=== PATIENT | female | born 1990 | race Caucasian/White ===

== ENCOUNTER 2019-09-03 05:31 | Outpatient (CLI) | payer MEDICAID ==
[~2019-09-03] VITALS: Ht 170 cm; Wt 60.9 kg
[~2019-09-03 05:31] MED LIST: AMOX-358 PO; Docusate Sodium PO; FLC100T1 PO; HYDR-3720 PO; Ibuprofen PO; NEOM10DR6 EACH EAR; NF-CIPDEC OT; NITR100C3 PO; SULF1TAB23 PO
[2019-09-03] MEDS ORDERED: RT-ALBUINH IH (13:05)
[2019-09-07] MEDS ORDERED: IBUP-1780 PO (12:51)
== END 2019-09-03 13:14 | disposition home or self-care (01) ==
LOC: PREOP 05:31
PROVIDERS: ATTEND Obstetrics & Gynecology
DX: Z01.818 Encounter for other preprocedural examination (principal)

== ENCOUNTER 2020-02-04 15:08 | Emergency (ER) | payer MEDICAID ==
[~2020-02-04] VITALS: Ht 170 cm; Wt 59.0 kg
[~2020-02-04 15:08] MED LIST changes: +IBUP-1780 PO; +RT-ALBUINH IH
--- NOTE | 2020-02-04 15:38 | ED EENT ---
History of Present Illness General Chief Complaint: Pediatric Illness/Problems Stated Complaint: EAR PAIN Source: patient Exam Limitations: no limitations History of Present Illness Date Seen by Provider: February 04, 2020 Time Seen by Provider: 15:33 Initial Comments Bilateral ear itching and pain, history of eczema in her ear canals she states. Timing/Duration: abrupt Severity: moderate Location: ear (R), ear (L) Associated Symptoms: denies symptoms Allergies and Home Medications Allergies Coded Allergies: latex (Verified Allergy, Mild, RASH, 09/03/19) Home Medications Albuterol Sulfate 1 Puff Puff, 2 PUFF IH Q4H PRN for SHORTNESS OF BREATH, (Rep orted) 1 PUFF = 90 MCG Ibuprofen 800 Mg Tablet, 800 MG PO Q6H PRN for PAIN Prescribed by: MARIA M QUINTERO on 09/07/19 1251 Patient Home Medication List Home Medication List Reviewed: Yes Review of Systems Review of Systems Constitutional: see HPI Eyes: No Symptoms Reported Ears: See HPI, Pain Nose: no symptoms reported Mouth: no symptoms reported Throat: no symptoms reported Respiratory: no symptoms reported Cardiovascular: no symptoms reported Musculoskeletal: no symptoms reported Skin: no symptoms reported Neurological: No Symptoms Reported Hematologic/Lymphatic: No Symptoms Reported Immunological/Allergic: no symptoms reported Past Ejnxavg-Vdkhke-Jqqyev Hx Patient Social History Former Smoker, Quit: Sep 03, 2015 2nd Hand Smoke Exposure: Yes Recent Foreign Travel: No Contact w/Someone Who Travel: No Recent Hopitalizations: No Seasonal Allergies Seasonal Allergies: Yes Past Medical History Surgeries: Yes (BILIAT KNEE SCOPES) Adenoidectomy, Tonsillectomy Respiratory: Yes Asthma Cardiac: No Neurological: No Reproductive Disorders: No Female Reproductive Disorders: Menstrual Problems Sexually Transmitted Disease: No HIV/AIDS: No Genitourinary: Yes UTI-Chronic Gastrointestinal: No Musculoskeletal: No Endocrine: No HEENT: Yes (GLASSES-WHEN AT WORK) Loss of Vision: Denies Hearing Impairment: Denies Cancer: No Psychosocial: No Integumentary: Yes (IN EARS) Eczema Blood Disorders: No Adverse Reaction/Blood Tranf: No (N/A) Family Medical History Hypertension 19 FATHER Physical Exam Height, Weight, BMI Height: 5'6" Weight: 100lbs. oz. 45.811012up; 21.07 BMI Method:Stated General Appearance: WD/WN, no apparent distress Eyes: bilateral eye normal inspection, bilateral eye PERRL, bilateral eye EOMI Ears: bilateral ear auricle normal, bilateral ear TM normal, bilateral ear other (bilat ear canal swollen, tender. ) Neck: non-tender, full range of motion Respiratory: no respiratory distress, no accessory muscle use Neurologic/Psychiatric: alert, normal mood/affect, oriented x 3 Skin: normal color, warm/dry Departure Impression Primary Impression: Otitis externa Qualified Codes: H60.503 - Unspecified acute noninfective otitis externa, bilateral Disposition: 01 HOME, SELF-CARE Condition: Stable Departure-Patient Inst. Decision time for Depature: 15:35 Referrals: NO,LOCAL PHYSICIAN (PCP) Primary Care Physician Patient Instructions: Ear Infections (Otitis Media) in Children, NO INSTRUCTIONS GIVEN Add. Discharge Instructions: 4 drops into each ear 3 times per day for 5 days All discharge instructions reviewed with patient and/or family. Voiced understanding. TEE BELL MEDIA RECONCILIATION SPECIALIST February 04, 2020 15:38
[2020-02-04] MEDS ORDERED: HYDR-3870 PO ×2 (15:40→15:46)
== END 2020-02-04 15:44 | disposition home or self-care (01) ==
LOC: EDUNIT# 15:08 → ER 15:09
DX: H60.93 Unspecified otitis externa, bilateral (principal); J45.909 Unspecified asthma, uncomplicated; Z91.040 Latex allergy status; Z87.891 Personal history of nicotine dependence; Z82.49 Family history of ischemic heart disease and other diseases of the circulatory system
CPT/HCPCS: 99282

== ENCOUNTER 2020-11-29 20:26 | Emergency (ER) | payer MEDICAID ==
[~2020-11-29] VITALS: Ht 170.2 cm; Wt 56.7 kg
[~2020-11-29 20:26] MED LIST changes: +HYDR-3870 PO
--- NOTE | 2020-11-29 20:50 | ED Respiratory ---
General Stated Complaint: CONGESTION / COUGH Source: patient Exam Limitations: no limitations History of Present Illness Date Seen by Provider: Nov 29, 2020 Time Seen by Provider: 20:39 Initial Comments This is a 30-year-old female who presents to the ER with complaints of cough and congestion x6 days. States that she is having "limegreen" nasal discharge, congestion, cough that does not go away. States she was tested for Covid on Tuesday (4 days ago) and was negative at that time. Additionally reports some intermittent feelings of shortness of air. She denies fever, chills, nausea, vomiting, diarrhea, abdominal pain. Allergies and Home Medications Allergies Coded Allergies: latex (Verified Allergy, Mild, RASH, 09/03/19) Home Medications Albuterol Sulfate 1 Puff Puff, 2 PUFF IH Q4H PRN for SHORTNESS OF BREATH, (Reported) 1 PUFF = 90 MCG Benzonatate 100 Mg Capsule, 200 MG PO BID PRN for COUGH Prescribed by: YANN THORNTON on 11/29/20 2220 Hydrocodone/Acetaminophen 1 Each Tablet, 1 EACH PO Q4-6HR PRN for PAIN-MODERATE . Prescribed by: TEE BELL on 02/04/20 1547 Ibuprofen 800 Mg Tablet, 800 MG PO Q6H PRN for PAIN Prescribed by: MARIA M QUINTERO on 09/07/19 1251 Patient Home Medication List Home Medication List Reviewed: Yes Review of Systems Review of Systems Constitutional: see HPI EENTM: see HPI Respiratory: see HPI Cardiovascular: no symptoms reported Gastrointestinal: no symptoms reported Genitourinary: no symptoms reported Musculoskeletal: no symptoms reported Skin: no symptoms reported Psychiatric/Neurological: No Symptoms Reported Hematologic/Lymphatic: No Symptoms Reported Immunological/Allergic: no symptoms reported Past Buutray-Wgwqmw-Fcalrj Hx Patient Social History Former Smoker, Quit: Sep 03, 2015 2nd Hand Smoke Exposure: Yes Recent Hopitalizations: No Seasonal Allergies Seasonal Allergies: Yes Past Medical History Surgeries: Yes (BILIAT KNEE SCOPES) Adenoidectomy, Tonsillectomy Respiratory: Yes Asthma Cardiac: No Neurological: No Reproductive Disorders: No Female Reproductive Disorders: Menstrual Problems Sexually Transmitted Disease: No HIV/AIDS: No Genitourinary: Yes UTI-Chronic Gastrointestinal: No Musculoskeletal: No Endocrine: No HEENT: Yes (GLASSES-WHEN AT WORK) Loss of Vision: Denies Hearing Impairment: Denies Cancer: No Psychosocial: No Integumentary: Yes (IN EARS) Eczema Blood Disorders: No Adverse Reaction/Blood Tranf: No (N/A) Family Medical History Hypertension 19 FATHER Physical Exam Vital Signs - First Documented 11/29/20 11/29/20 20:50 21:04 Temp 36.3 Pulse 81 Resp 18 B/P (MAP) 113/83 (93) Pulse Ox 97 O2 Delivery Room Air Capillary Refill : Height: 5'6" Weight: 100lbs. oz. 45.572217gl; 20.00 BMI Method:Stated General Appearance: WD/WN, no apparent distress Eyes: Right Eye Normal Inspection; Left Eye Other (Injected); Bilateral Eye PERRL, Bilateral Eye EOMI HEENT: PERRL/EOMI; No TM abnormal (L), No tonsillar exudate; other (Bilateral swollen turbinates with moderate nasal drainage.) Neck: full range of motion, supple, normal inspection Respiratory: lungs clear, normal breath sounds, no respiratory distress Cardiovascular: regular rate, rhythm, no murmur Gastrointestinal: normal bowel sounds, non tender, soft Extremities: normal range of motion, non-tender, normal inspection Neurologic/Psychiatric: no motor/sensory deficits, alert, normal mood/affect, oriented x 3 Skin: normal color, warm/dry Progress/Results/Core Measures Suspected Sepsis SIRS Temperature: Pulse: Respiratory Rate: Laboratory Tests 11/29/20 21:20: White Blood Count 10.3 Blood Pressure / Mean: Laboratory Tests 11/29/20 21:20: Creatinine 0.74, Platelet Count 263, Total Bilirubin 0.3 Results/Orders Lab Results Laboratory Tests Test 11/29/20 21:20 Range/Units White Blood Count 10.3 4.3-11.0 10^3/uL Red Blood Count 4.31 3.80-5.11 10^6/uL Hemoglobin 13.2 11.5-16.0 g/dL Hematocrit 39 35-52 % Mean Corpuscular Volume 90 80-99 fL Mean Corpuscular Hemoglobin 31 25-34 pg Mean Corpuscular Hemoglobin Concent 34 32-36 g/dL Red Cell Distribution Width 11.9 10.0-14.5 % Platelet Count 263 130-400 10^3/uL Mean Platelet Volume 10.2 9.0-12.2 fL Immature Granulocyte % (Auto) 0 % Neutrophils (%) (Auto) 46 42-75 % Lymphocytes (%) (Auto) 37 12-44 % Monocytes (%) (Auto) 13 H 0-12 % Eosinophils (%) (Auto) 3 0-10 % Basophils (%) (Auto) 1 0-10 % Neutrophils # (Auto) 4.7 1.8-7.8 10^3/uL Lymphocytes # (Auto) 3.8 1.0-4.0 10^3/uL Monocytes # (Auto) 1.4 H 0.0-1.0 10^3/uL Eosinophils # (Auto) 0.3 0.0-0.3 10^3/uL Basophils # (Auto) 0.1 0.0-0.1 10^3/uL Immature Granulocyte # (Auto) 0.0 0.0-0.1 10^3/uL Sodium Level 138 135-145 MMOL/L Potassium Level 3.8 3.6-5.0 MMOL/L Chloride Level 105 98-107 MMOL/L Carbon Dioxide Level 24 21-32 MMOL/L Anion Gap 9 5-14 MMOL/L Blood Urea Nitrogen 8 7-18 MG/DL Creatinine 0.74 0.60-1.30 MG/DL Estimat Glomerular Filtration Rate > 60 BUN/Creatinine Ratio 11 Glucose Level 95 70-105 MG/DL Calcium Level 8.3 L 8.5-10.1 MG/DL Corrected Calcium 8.3 L 8.5-10.1 MG/DL Total Bilirubin 0.3 0.1-1.0 MG/DL Aspartate Amino Transf (AST/SGOT) 13 5-34 U/L Alanine Aminotransferase (ALT/SGPT) 12 0-55 U/L Alkaline Phosphatase 44 40-136 U/L Total Protein 6.5 6.4-8.2 GM/DL Albumin 4.0 3.2-4.5 GM/DL Micro Results Microbiology 11/29/20 Influenza Types A,B Antigen (ЮЛИЯ) - Final, Complete My Orders Orders - YANN THORNTON SENIOR FRONT END ENGINEER Influenza A And B Antigens (11/29/20 20:54) Cbc With Automated Diff (11/29/20 20:54) Chest 1 View, Ap/Pa Only (11/29/20 20:54) Comprehensive Metabolic Panel (11/29/20 20:54) Benzonatate Capsule (Tessalon Perles) (11/29/20 22:30) Medications Given in ED Current Medications Medications Dose Ordered Sig/Jen Route Start Time Stop Time Status Last Admin Dose Admin Benzonatate 200 mg ONCE ONCE PO 11/29/20 22:30 11/29/20 22:31 DC 11/29/20 22:26 200 MG Vital Signs/I&O 11/29/20 11/29/20 20:50 21:04 Temp 36.3 Pulse 81 Resp 18 B/P (MAP) 113/83 (93) Pulse Ox 97 O2 Delivery Room Air Room Air Capillary Refill : Progress Note : Progress Note Patient examined in no acute distress. Based on symptomology this appears viral in nature however she is very concerned about bacterial infection including pneumonia. Will initiate basic labs, chest x-ray, influenza as she had a recent Covid that was negative. Labs reviewed and indicate viral URI. Influenza neg. Chest x-ray shows no acute pathology. Reviewed findings with patient and discharge plan and she is agreeable with plan. Will give dose of Tessalon Perles in ED prior to disch arge. Diagnostic Imaging Diagonstic Imaging: Xray Plain Films/CT/US/NM/MRI: chest Comments NAME: REKHA HAYES [facility] REC#: [id number] PT STATUS: REG ER : 1990 PHYSICIAN: YANN THORNTON APRN ADMIT DATE: 11/29/20/ER Signed Date of Exam:11/29/20 CHEST 1 VIEW, AP/PA ONLY INDICATION: Cough. EXAMINATION: Portable erect AP chest at 9:29 p.m. COMPARISON: There are no prior exams available for comparison. FINDINGS: The heart size is within normal limits. The lungs are generally clear. There are a few coarse bronchovascular markings in the right infrahilar region but there is no sign of pneumonia or pleural effusion. The osseous structures, where visualized, are intact. IMPRESSION: Negative for active disease. Dictated by: Dictated on workstation # [id number] Dict: 11/29/202133 Trans: 11/29/202216 E [id number] Interpreted by: ALMA DELIA BROWN MD Electronically signed by: ALMA DELIA BROWN MD 11/29/202216 Reviewed: Reviewed by Me Departure Impression Primary Impression: Upper respiratory infection, viral Disposition: HOME, SELF-CARE Condition: Stable/Unchanged Departure-Patient Inst. Decision time for Depature: 22:15 Referrals: NO,LOCAL PHYSICIAN (PCP/Family) Primary Care Physician Patient Instructions: Viral Upper Respiratory Infection, Adult (DC) Add. Discharge Instructions: Plan: 1. Discharge home. 2. Use humidifier to help with mucus secretions. Drink plenty of fluids. 3. May take Tylenol or Ibuprofen as needed for pain per package insert. 4. Use Tessalon perle as directed for cough. 5. Follow up with your doctor for any persistent symptoms. 6. Return for any new or worsening symptoms. Scripts Benzonatate (TESSALON PERLES) 100 Mg Capsule 200 MG PO BID PRN for COUGH, #20 CAP 0 Refills Prov: YANN THORNTON SENIOR FRONT END ENGINEER 11/29/20 YANN THORNTON SENIOR FRONT END ENGINEER Nov 29, 2020 20:50
[2020-11-29 21:38] LABS: BASOPHILS # (AUTO) 0.1 10^3/uL (0.0-0.1); BASOPHILS % (AUTO) 1 % (0-10); EOSINOPHILS # (AUTO) 0.3 10^3/uL (0.0-0.3); EOSINOPHILS % (AUTO) 3 % (0-10); HEMATOCRIT 39 % (35-52); HEMOGLOBIN 13.2 g/dL (11.5-16.0); LYMPHOCYTES # (AUTO) 3.8 10^3/uL (1.0-4.0); LYMPHOCYTES % (AUTO) 37 % (12-44); MEAN CORPUSCULAR HEMOGLOBIN 31 pg (25-34); MEAN CORPUSCULAR HGB CONC 34 g/dL (32-36); MEAN CORPUSCULAR VOLUME 90 fL (80-99); MEAN PLATELET VOLUME 10.2 fL (9.0-12.2); MONOCYTES # (AUTO) 1.4 10^3/uL (0.0-1.0); MONOCYTES % (AUTO) 13 % (0-12); NEUTROPHILS # (AUTO) 4.7 10^3/uL (1.8-7.8); NEUTROPHILS % (AUTO) 46 % (42-75); PLATELET COUNT 263 10^3/uL (130-400); WHITE BLOOD COUNT 10.3 10^3/uL (4.3-11.0)
--- NOTE | 2020-11-29 21:57 | Diagnostic Imaging Report ---
INDICATION: Cough. EXAMINATION: Portable erect AP chest at 9:29 p.m. COMPARISON: There are no prior exams available for comparison. FINDINGS: The heart size is within normal limits. The lungs are generally clear. There are a few coarse bronchovascular markings in the right infrahilar region but there is no sign of pneumonia or pleural effusion. The osseous structures, where visualized, are intact. IMPRESSION: Negative for active disease. Dictated by: Dictated on workstation # [id number]
[2020-11-29 22:01] LABS: ALANINE AMINOTRANSFERASE 12 U/L (0-55); ALKALINE PHOSPHATASE 44 U/L (40-136); BILIRUBIN,TOTAL 0.3 MG/DL (0.1-1.0); BUN/CREATININE RATIO 11; CALCIUM 8.3 MG/DL (8.5-10.1); CARBON DIOXIDE 24 MMOL/L (21-32); CHLORIDE 105 MMOL/L (98-107); CREATININE SERUM 0.74 MG/DL (0.60-1.30); GFR ESTIMATED > 60; GLUCOSE 95 MG/DL (70-105); POTASSIUM 3.8 MMOL/L (3.6-5.0); SODIUM 138 MMOL/L (135-145); TOTAL PROTEIN 6.5 GM/DL (6.4-8.2)
[2020-11-29] MEDS ORDERED: BENZ100C18 PO (22:20)
[2020-11-29 22:25] VITALS: BP 122/90
[2020-11-29] MEDS ORDERED: BENZONATATE 100 MG (TESSALON) CAPSULE PO ONE (22:30)
== END 2020-11-29 22:25 | disposition home or self-care (01) ==
LOC: EDUNIT# 20:26 → ER 20:27
DX: J06.9 Acute upper respiratory infection, unspecified (principal); J45.909 Unspecified asthma, uncomplicated; Z77.22 Contact with and (suspected) exposure to environmental tobacco smoke (acute) (chronic); Z91.040 Latex allergy status
CPT/HCPCS: 36415; 71045; 80053; 85025; 87804

== ENCOUNTER 2021-08-21 08:03 | Outpatient (CLI) | payer MEDICAID ==
[~2021-08-21] VITALS: Ht 170.2 cm; Wt 67.7 kg
[~2021-08-21 08:03] MED LIST changes: +BENZ100C18 PO
[2021-08-21 08:10] VITALS: BP 102/72
[2021-08-21] MEDS ORDERED: PREN-142 PO (10:04)
--- NOTE | 2021-08-24 08:13 | Physician Query-Final Dx ---
MARYCHUY08/24/21 0813: Clinic Account Progress/Dx Physician Query: Please give diagnosis Please include # weeks gestation Date of Service Aug 21, 2021 at 08:03 CANDACE SHERWOOD MD 08/25/21 1410: Clinic Account Progress/Dx DIAGNOSIS: Diagnosis: (1) contractions Diagnosis Uterine Contractions MARYCHUY,SepAug 24, 2021 08:13 CANDACE SHERWOOD MD Aug 25, 2021 14:10
== END 2021-08-21 10:15 | disposition home or self-care (01) ==
LOC: WSo 08:03 → LDRP 08:05 → WSo 10:15
PROVIDERS: ATTEND Obstetrics & Gynecology
DX: O62.9 Abnormality of forces of labor, unspecified (principal); Z3A.00 Weeks of gestation of pregnancy not specified
CPT/HCPCS: 84112

== ENCOUNTER 2021-09-01 16:37 | Outpatient (CLI) | payer MEDICAID ==
[~2021-09-01 16:37] MED LIST changes: +PREN-142 PO
[2021-09-01 17:04] VITALS: BP 122/67
[2021-09-01 17:06] VITALS: BP 122/67
[2021-09-01 17:18] LABS: BILIRUBIN,URINE NEGATIVE (NEGATIVE); CLARITY,URINE CLEAR; COLOR,URINE YELLOW; GLUCOSE, URINE (UA) NEGATIVE (NEGATIVE); KETONES,URINE NEGATIVE (NEGATIVE); LEUKOCYTE ESTERASE ,URINE NEGATIVE (NEGATIVE); NITRITE,URINE NEGATIVE (NEGATIVE); PROTEIN,URINE NEGATIVE (NEGATIVE)
[2021-09-01 17:31] LABS: BACTERIA,URINE FEW /HPF; SQUAMOUS EPITHELIAL CELL,UR 0-2 /HPF
--- NOTE | 2021-09-02 09:07 | Physician Query-Final Dx ---
MARYCHUY,09/02/21 0907: Clinic Account Progress/Dx Physician Query: Please give diagnosis Please include # weeks gestation Date of Service Sep 01, 2021 at 16:37 RODNEY NYE DO 09/03/21 0842: Clinic Account Progress/Dx DIAGNOSIS: Diagnosis 31 weeks contractions MARYCHUY,SepSep 02, 2021 09:07 RODNEY NYE DO Sep 03, 2021 08:42
== END 2021-09-01 18:53 ==
LOC: WSo 16:37 → LDRP 16:37 → WSo 18:53
PROVIDERS: ATTEND Obstetrics & Gynecology
DX: O62.9 Abnormality of forces of labor, unspecified (principal); Z3A.31 31 weeks gestation of pregnancy
CPT/HCPCS: 81000

== ENCOUNTER → 2021-09-03 | Outpatient (CLI) | payer MEDICAID ==
--- NOTE | 2021-09-03 18:19 | Diagnostic Imaging Report ---
INDICATION: Premature labor. TECHNIQUE: Multiple real-time grayscale images were obtained over the gravid uterus. COMPARISON: None FINDINGS: There is a single live fetus in a cephalic presentation. heart rate was recorded at 142 BPM. Amniotic fluid index is 14 cm. Biophysical profile was performed with a normal score of 8/8. IMPRESSION: Normal biophysical profile score of 8/8. Dictated by: Dictated on workstation # [id number]
== END ==
LOC: RAD 09:00
PROVIDERS: ATTEND Obstetrics & Gynecology
DX: O60.03 Preterm labor without delivery, third trimester (principal); Z3A.00 Weeks of gestation of pregnancy not specified
CPT/HCPCS: 76805; 76819

== ENCOUNTER 2021-09-17 22:55 | Outpatient (CLI) | payer MEDICAID ==
[~2021-09-17] VITALS: Ht 170.2 cm; Wt 70.4 kg
[2021-09-17 23:13] VITALS: BP 126/75
[2021-09-17 23:30] LABS: BILIRUBIN,URINE NEGATIVE (NEGATIVE); CLARITY,URINE CLEAR; COLOR,URINE YELLOW; GLUCOSE, URINE (UA) NEGATIVE (NEGATIVE); KETONES,URINE NEGATIVE (NEGATIVE); LEUKOCYTE ESTERASE ,URINE 1+ (NEGATIVE); NITRITE,URINE NEGATIVE (NEGATIVE); PROTEIN,URINE NEGATIVE (NEGATIVE)
[2021-09-17 23:54] LABS: BACTERIA,URINE TRACE /HPF; WBC,URINE 0-2 /HPF
--- NOTE | 2021-09-18 08:22 | Physician Query-Final Dx ---
Clinic Account Progress/Dx Physician Query: Please give diagnosis Please include # weeks gestation Date of Service Sep 17, 2021 at 22:55 MARYCHUY,SepSep 18, 2021 08:22
== END 2021-09-18 00:05 | disposition home or self-care (01) ==
LOC: WSo 22:55 → LDRP 22:55 → WSo 09-18 00:05
PROVIDERS: ATTEND Obstetrics & Gynecology
DX: O62.9 Abnormality of forces of labor, unspecified (principal); Z3A.33 33 weeks gestation of pregnancy
CPT/HCPCS: 81000; 99212

== ENCOUNTER 2021-09-26 14:12 | Outpatient (CLI) | payer MEDICAID ==
[~2021-09-26] VITALS: Ht 167.7 cm; Wt 71.2 kg
[2021-09-26 14:30] VITALS: BP 122/73
[2021-09-26] MEDS ORDERED: ACETAMINOPHEN 500 MG TAB (TYLENOL) ONE (15:24)
[2021-09-26] MEDS ORDERED: ACETAMINOPHEN 500 MG TAB (TYLENOL) PO ONE (15:30)
[2021-09-26] MEDS ORDERED: CYCL10TA25 PO (16:44)
--- NOTE | 2021-09-28 08:29 | Physician Query-Final Dx ---
Clinic Account Progress/Dx Physician Query: Please give diagnosis Please include # weeks gestation Date of Service Sep 26, 2021 at 14:12 MARYCHUY,SepSep 28, 2021 08:29
== END 2021-09-26 15:33 | disposition home or self-care (01) ==
LOC: LDRP 14:12 → WSo 14:12
PROVIDERS: ATTEND Obstetrics & Gynecology
DX: O99.613 Diseases of the digestive system complicating pregnancy, third trimester (principal); Z3A.34 34 weeks gestation of pregnancy
CPT/HCPCS: 99213

== ENCOUNTER 2021-09-26 15:37 | Emergency (ER) | payer MEDICAID ==
[~2021-09-26] VITALS: Ht 172 cm; Wt 73.0 kg
[2021-09-26 15:49] VITALS: BP 130/80
[2021-09-26] MEDS ORDERED: LIDOCAINE 4% (SALONPAS) PATCH TOP STA (16:12)
[2021-09-26] MEDS ORDERED: CYCL10TA25 PO (16:44)
--- NOTE | 2021-09-26 16:44 | ED Abdominal Pain ---
General Chief Complaint: Abdominal/GI Problems Stated Complaint: 34 WKS PREG/HERNIA PAIN Nursing Triage Note: patient complaint of umblical hernia pain. patient was seen in OB prior to checking into ED. OB stated baby was okay, administered tylenol for pain. patient is 36 and 6 weeks . patient states pain worse when sitting 8/10 scale states pain takes her breath away Source of Information: Patient Exam Limitations: No Limitations History of Present Illness Date Seen by Provider: Sep 26, 2021 Allergies and Home Medications Allergies Coded Allergies: latex (Verified Allergy, Mild, RASH, 09/03/19) Patient Home Medication List Albuterol Sulfate (Proair Hfa) 1 Puff Puff, 2 PUFF IH Q4H PRN for SHORTNESS OF BREATH, (Reported) Entered as Reported by: TY CASTANEDA on 09/03/19 1305 Vit No.124/Iron/FA ( Vitamin Tablet) 1 Each Tablet, 1 EACH PO DAILY, (Reported) Entered as Reported by: ANTONIO CARRION on 08/21/21 1004 Past Ypajjnz-Bxkcdi-Vicbjt Hx Patient Social History Tobacco Use?: No Use of E-Cig and/or Vaping dev: No Substance use?: No Alcohol Use?: No Pt feels they are or have been: No Immunizations Up To Date Influenza Vaccine Up-to-Date: No; Not Current First/Initial COVID19 Vaccinat: no Second COVID19 Vaccination Tyrese: no Third COVID19 Vaccination Date: no Seasonal Allergies Seasonal Allergies: Yes Past Medical History Surgeries: Yes (BILIAT KNEE SCOPES) Adenoidectomy, Tonsillectomy Respiratory: Yes Asthma Cardiac: No Neurological: No Reproductive Disorders: No Female Reproductive Disorders: Menstrual Problems Sexually Transmitted Disease: No HIV/AIDS: No Genitourinary: Yes UTI-Chronic Gastrointestinal: No Musculoskeletal: No Endocrine: No HEENT: Yes (GLASSES-WHEN AT WORK) Loss of Vision: Denies Hearing Impairment: Denies Cancer: No Psychosocial: No Integumentary: Yes (IN EARS) Eczema Blood Disorders: No Adverse Reaction/Blood Tranf: No (N/A) Family Medical History Hypertension 19 FATHER Physical Exam Vital Signs Vital Signs - First Documented 09/26/21 15:49 Temp 36.9 Pulse 69 Resp 20 B/P (MAP) 130/80 (97) Pulse Ox 98 O2 Delivery Room Air Capillary Refill : Less Than 3 Seconds Height/Weight/BMI Height: 5'6" Weight: 100lbs. oz. 45.958621ck; 24.00 BMI Method:Stated Progress/Results/Core Measures Results/Orders My Orders Orders - MATTHEW BAER MD Lidocaine 4% Patch (Salonpas 4% Patch) (09/26/21 16:12) Vital Signs/I&O 09/26/21 15:49 Temp 36.9 Pulse 69 Resp 20 B/P (MAP) 130/80 (97) Pulse Ox 98 O2 Delivery Room Air Blood Pressure Mean: 97 Departure Impression Primary Impression: Umbilical hernia without mention of obstruction or gangrene Disposition: HOME, SELF-CARE Condition: Improved Departure-Patient Inst. Decision time for Depature: 16:42 Referrals: MARIA M BAJWA MD (PCP) Primary Care Physician TOVA LI (Family) Primary Care Physician Patient Instructions: Umbilical Hernia, Adult Add. Discharge Instructions: You may use a belt to apply gentle pressure to the hernia if that is helpful. You may also try a lidocaine patch such as Salonpas up to 4%. Follow instructions on the packaging. You may use Tylenol (acetaminophen) up to 1000 mg every 6 hours as needed. If these measures do not control your pain, you may try cyclobenzaprine as prescribed. This medication may make you drowsy so be careful with its use and do not drive or operate machinery until you know how this affects you. Be sure your umbilical hernia remains soft and reducible. If it ever becomes hard or will not be reduced with gentle pressure, return to the ER. All discharge instructions reviewed with patient and/or family. Voiced understanding. Scripts Cyclobenzaprine HCl (Cyclobenzaprine HCl) 10 Mg Tablet 10 MG PO Q8H PRN for PAIN-BREAKTHROUGH, #15 TAB 0 Refills Prov: MATTHEW BAER MD 09/26/21 MATTHEW BAER MD Sep 26, 2021 16:44
== END 2021-09-26 17:05 | disposition home or self-care (01) ==
LOC: EDUNIT# 15:37 → ER 15:38
DX: O26.893 Other specified pregnancy related conditions, third trimester (principal); K42.9 Umbilical hernia without obstruction or gangrene; J45.909 Unspecified asthma, uncomplicated; Z91.040 Latex allergy status; Z3A.36 36 weeks gestation of pregnancy
CPT/HCPCS: 99281

== ENCOUNTER 2021-10-08 14:39 | Outpatient (CLI) | payer MEDICAID ==
[~2021-10-08] VITALS: Ht 167 cm; Wt 70.9 kg
[~2021-10-08 14:39] MED LIST changes: +CYCL10TA25 PO
[2021-10-08 15:10] VITALS: BP 128/84
[2021-10-08 15:19] VITALS: BP 128/84
[2021-10-08] MEDS ORDERED: FEXO-45 PO (15:19)
[2021-10-08] MEDS ORDERED: FAMO20TA3 PO (15:27)
[2021-10-08 15:50] VITALS: BP 128/84
--- NOTE | 2021-10-12 08:38 | Physician Query-Final Dx ---
Clinic Account Progress/Dx Physician Query: Please give diagnosis Please include # weeks gestation Date of Service Oct 08, 2021 at 14:39 MARYCHUY,SepOct 12, 2021 08:38
== END 2021-10-08 15:50 | disposition home or self-care (01) ==
LOC: WSo 14:39 → LDRP 14:41 → WSo 15:50
PROVIDERS: ATTEND Obstetrics & Gynecology
DX: Z34.90 Encounter for supervision of normal pregnancy, unspecified, unspecified trimester (principal); Z3A.00 Weeks of gestation of pregnancy not specified
CPT/HCPCS: 99213

== ENCOUNTER 2021-10-14 13:42 | Inpatient (IN) | payer MEDICAID ==
[~2021-10-14] VITALS: Ht 167.7 cm; Wt 73.1 kg
[2021-10-14] VITALS (39 sets, daily range): BP systolic 116–148; BP diastolic 58–99
[~2021-10-14 13:42] MED LIST changes: +FAMO20TA3 PO; +FEXO-45 PO
[2021-10-14] MEDS ORDERED: DIPH25CA79 PO (14:31)
[2021-10-14] MEDS ORDERED: TR025C15 TP (14:32)
[2021-10-14 14:42] LABS: BILIRUBIN,URINE NEGATIVE (NEGATIVE); CLARITY,URINE CLEAR; COLOR,URINE YELLOW; GLUCOSE, URINE (UA) NEGATIVE (NEGATIVE); KETONES,URINE NEGATIVE (NEGATIVE); LEUKOCYTE ESTERASE ,URINE NEGATIVE (NEGATIVE); NITRITE,URINE NEGATIVE (NEGATIVE); PROTEIN,URINE NEGATIVE (NEGATIVE)
[2021-10-14 14:49] LABS: BACTERIA,URINE FEW /HPF; SQUAMOUS EPITHELIAL CELL,UR 0-2 /HPF; WBC,URINE 0-2 /HPF
[2021-10-14] MEDS ORDERED: D5 LR IV SOLUTION 1,000 ML IV SCH (15:30)
[2021-10-14] MEDS ORDERED: MINERAL OIL CONCENTRATE 99.9% 15 ML UDC TOP PRN (15:45)
--- NOTE | 2021-10-14 16:11 | History & Physical-OB ---
OB - Chief Complaint & HPI Date/Time Date of Admission: Date of Admission: Oct 14, 2021 at 15:24 Date seen by a Provider: Oct 14, 2021 Time Seen by a Provider: 16:06 Chief Complaint/History OB-Reason for Admission/Chief: Pruritus of palms and soles Hx : 2 Hx Para: 1 Hx Last Menstrual Period: 01/25/2021 Estimated Date of Conception: 11/01/2021 Expected Date of Delivery: Nov 01, 2021 Gestational Age in Weeks: 37 Gestational Age in Days: 3 Indication for induction: other (Intrahepatic cholestasis of ) Allergies and Home Medications Allergies Coded Allergies: latex (Verified Allergy, Mild, RASH, 09/03/19) Patient Home Medication List Home Medication List Reviewed: Yes Albuterol Sulfate (Proair Hfa) 1 Puff Puff, 2 PUFF IH Q4H PRN for SHORTNESS OF BREATH, (Reported) Entered as Reported by: TY CASTANEDA on 09/03/19 1305 Last Action: Reviewed Diphenhydramine HCl (Benadryl) 25 Mg Capsule, 25 MG PO Q6H PRN for it, (Reported) Entered as Reported by: FLORINDA MYERS on 10/14/21 1431 Last Action: New Order Vit No.124/Iron/FA ( Vitamin Tablet) 1 Each Tablet, 1 EACH PO DAILY, (Reported) Entered as Reported by: ANTONIO CARRION on 08/21/21 1004 Last Action: Reviewed Triamcinolone Acet (Triamcinolone Acetonide 0.025%) 15 Gm Cr, 15 GM TP NEEDED, (Reported) Entered as Reported by: FLORINDA MYERS on 10/14/21 1432 Last Action: New Order Discontinued Medications Cyclobenzaprine HCl (Cyclobenzaprine HCl) 10 Mg Tablet, 10 MG PO Q8H PRN for PAIN-BREAKTHROUGH Discontinued Reason: No Longer Taking Prescribed by: MATTHEW CALLES on 09/26/21 1644 Famotidine (Acid Dental Professional (FAMOTIDINE)) 20 Mg Tablet, 40 MG PO HS, (Reported) Discontinued Reason: No Longer Taking Entered as Reported by: FLORINDA MYERS on 10/08/21 1527 Last Action: Discontinued Fexofenadine HCl (Fexofenadine HCl) 60 Mg Tablet, 60 MG PO HS, (Reported) Discontinued Reason: No Longer Taking Entered as Reported by: FLORINDA MYERS on 10/08/21 2188 OB - History Hx of Present Care: Yes Ultrasounds: Normal mid trimester US Obstetrical Complications: None Medical Complications: None Information Induced Hypertension: No Maternal Gestational Diabetes: No Hemorrhage: No Obstetrical History Hx : 2 Hx Para: 1 Hx Termination: No Hx Multiple Gestation: No Hx Ectopic : No Hx Stillbirth: No Hx Complication: No Hx Induced Hypertens: No Hx Maternal Gestational Diabet: No Hx Hemorrhage: No Delivery History Hx Dystocia: No Hx Forceps Assisted Delivery: No Hx Vacuum Extraction Assisted: No Hx Placenta Abnormality: No Hx Distress: No Hx Large For Gestational Age I: No Hx Small for Gestational Age I: No Hx Section: No Hx Vaginal Delivery Post C-Sec: No Hx Blood Disorders: No Adverse Rxn to Tranfusion: No (N/A) Patient Past Medical History N/A Social History/Family History Alcohol Use: Denies Use Recreational Drug Use: No 2nd Hand Smoke Exposure: No Immunizations Influenza Vaccine Up-to-Date: No; Not Current First/Initial COVID19 Vaccine: no Second COVID19 Vaccination: no Third COVID19 Vaccination Date: no Rubella: immune RPR/VDRL: Negative GBS Status: Negative HBsAG: Negative OB - Admission Exam Physical Exam Vitals: Vital Signs Cervical Dilatation: other (3+) Effacement: Other (80) Station: -2 Membranes: Intact Heart Rate: 140's Accelerations: Accelerations Present Decelerations: No Decelerations Health Navigator Variability: Average (6-25) Contractions on Admission: None Hand Scoring Tool (Modified) Dilation (cm): 3-4cm (2) Effacement (%): 80-100% (3) Descent/Station: -2 (1) Cervix Consistency: Soft (2) Cervix Position: Anterior (2) Hand Score: 10 Labs Laboratory Tests Test 10/14/21 13:55 Range/Units Urine Color YELLOW Urine Clarity CLEAR Urine pH 6.0 5-9 Urine Specific [place] 1.015 L 1.016-1.022 Urine Protein NEGATIVE NEGATIVE Urine Glucose (UA) NEGATIVE NEGATIVE Urine Ketones NEGATIVE NEGATIVE Urine Nitrite NEGATIVE NEGATIVE Urine Bilirubin NEGATIVE NEGATIVE Urine Urobilinogen 0.2 < = 1.0 MG/DL Urine Leukocyte Esterase NEGATIVE NEGATIVE Urine RBC (Auto) NEGATIVE NEGATIVE Urine RBC NONE /HPF Urine WBC 0-2 /HPF Urine Squamous Epithelial Cells 0-2 /HPF Urine Crystals NONE /LPF Urine Bacteria FEW H /HPF Urine Casts NONE /LPF Urine Mucus SMALL H /LPF Urine Culture Indicated NO OB - Assessment/Plan/Diagnosis Assessment Admission Dx Intrahepatic Cholestasis of Admission Status: Inpatient Order (span 2 midnights) Reason for Inpatient Admission: Induction of labor is indicated after 37 weeks in the setting of intrahepatic cholestasis of , according to ACOG guidelines. Plan Plan: Induction Induction Method: AROM Problems: (1) Cholestasis during Assessment & Plan: Given patient's persistent symptoms to pruritus of palms and soles for 2 days, will proceed forward with induction of labor due to concerns for intrahepatic cholestasis of . # Will admit to L&D. # Labs: Routine admission labs. CMP and Bile acids ordered. # Will plan for induction with AROM. # Cat I tracing. # GBS negative. Antibiotics are not necessary. # The details of the procedure were reviewed with the patient along with the possibility of in the event of an emergency involving the mother or her fetus. All questions were answered and consents signed. # Anticipate vaginal delivery. Qualifiers: Qualified Codes: O26.613 - Liver and biliary tract disorders in , third trimester; K83.1 - Obstruction of bile duct (2) 37 weeks gestation of ALEN FRANKLIN MD Oct 14, 2021 16:11
[2021-10-14 16:22] LABS: BASOPHILS % (AUTO) 0 % (0-10); EOSINOPHILS % (AUTO) 0 % (0-10); HEMATOCRIT 36 % (35-52); LYMPHOCYTES # (AUTO) 1.9 10^3/uL (1.0-4.0); LYMPHOCYTES % (AUTO) 17 % (12-44); MEAN CORPUSCULAR HEMOGLOBIN 30 pg (25-34); MEAN CORPUSCULAR HGB CONC 34 g/dL (32-36); MEAN CORPUSCULAR VOLUME 88 fL (80-99); MEAN PLATELET VOLUME 10.8 fL (9.0-12.2); MONOCYTES # (AUTO) 1.2 10^3/uL (0.0-1.0); MONOCYTES % (AUTO) 11 % (0-12); NEUTROPHILS # (AUTO) 8.3 10^3/uL (1.8-7.8); NEUTROPHILS % (AUTO) 72 % (42-75); PLATELET COUNT 267 10^3/uL (130-400); WHITE BLOOD COUNT 11.6 10^3/uL (4.3-11.0)
[2021-10-14 16:33] LABS: ALBUMIN 3.3 GM/DL (3.2-4.5); POTASSIUM 3.2 MMOL/L (3.6-5.0)
[2021-10-14 16:34] LABS: CALCIUM 8.7 MG/DL (8.5-10.1)
[2021-10-14 16:35] LABS: TOTAL PROTEIN 6.4 GM/DL (6.4-8.2)
[2021-10-14 16:37] LABS: BILIRUBIN,TOTAL 0.3 MG/DL (0.1-1.0)
[2021-10-14 16:39] LABS: CREATININE SERUM 0.59 MG/DL (0.60-1.30)
--- NOTE | 2021-10-14 17:01 | Progress Note ---
Standard Progress Note Progress Notes/Assess & Plan Date Seen by a Provider: Oct 14, 2021 Time Seen by a Provider: 16:56 Progress/Assessment & Plan Patient AROM'd for scant clear fluid at 1655. FSE placed. Will defer IUPC placement at this time. Patient tolerated placement well. Will plan for ep idural placement PRN and start pitocin at 2meq and increase 2meq q20 minutes to a max of 20meq. Cat 1 tracing. GBS negative. Anticipate vaginal delivery. Diagnosis/Problems Diagnosis/Problems (1) Cholestasis during Assessment & Plan: Given patient's persistent symptoms to pruritus of palms and soles for 2 days, will proceed forward with induction of labor due to concerns for intrahepatic cholestasis of . # Will admit to L&D. # Labs: Routine admission labs. CMP and Bile acids ordered. # Will plan for induction with AROM. # Cat I tracing. # GBS negative. Antibiotics are not necessary. # The details of the procedure were reviewed with the patient along with the possibility of in the event of an emergency involving the mother or her fetus. All questions were answered and consents signed. # Anticipate vaginal delivery. Qualifiers: Qualified Codes: O26.613 - Liver and biliary tract disorders in , third trimester; K83.1 - Obstruction of bile duct (2) 37 weeks gestation of ALEN FRANKLIN MD Oct 14, 2021 17:01
[2021-10-14] MEDS ORDERED: fentaNYL 2 mcg/ml BUPIVA 0.125 100 ML ONE (17:09)
[2021-10-14] MEDS ORDERED: fentaNYL INJ 100 MCG/2 ML AMP ONE (17:48)
[2021-10-14] MEDS ORDERED: BUPIVACAINE 0.25% 30 ML (SENSORCAINE) VIAL ONE (17:48)
[2021-10-14] MEDS ORDERED: OXYTOCIN PRE-MIX DRIP 500 ML IV ONE (18:09)
[2021-10-14] MEDS ORDERED: OXYTOCIN PRE-MIX DRIP 500 ML IV SCH (18:15)
[2021-10-14] MEDS ORDERED: LACTATED RINGERS 1,000 ML IV ONE ×2 (18:30)
[2021-10-14] MEDS ORDERED: ONDANSETRON 4 MG/2 ML (SDV) Z0FRAN IV PRN (18:30)
[2021-10-14] MEDS ORDERED: fentaNYL INJ 100 MCG/2 ML AMP INJ ONE (18:30)
[2021-10-14] MEDS ORDERED: EPIDURAL (fentaNYL 2 MCG/ML BUPIVA 0.125%)100 ML BAG EPI PRN (18:30)
[2021-10-14] MEDS ORDERED: NALOXONE 0.4 MG/ML 1 ML (NARCAN) VIAL IV PRN ×2 (18:30→22:45)
[2021-10-14] MEDS ORDERED: diphenhydrAMINE 50 MG/ML INJ (BENADRYL) IV PRN (19:45)
[2021-10-14] MEDS ORDERED: diphenhydrAMINE 50 MG/ML INJ (BENADRYL) ONE (19:56)
[2021-10-14] MEDS ORDERED: CATHETER FLUSH 10 ML SYR IV SCH (22:00)
[2021-10-14] MEDS: OXYTOCIN PRE-MIX DRIP 500 ML IV SCH ×2 (22:40→22:48)
[2021-10-14] MEDS ORDERED: MEASLES,MUMPS,RUBELLA 1 EA INJ SQ ONE (22:45)
[2021-10-14] MEDS ORDERED: TETANUS,DIPTH,PERTUSS P/F (BOOSTRIX) 0.5 ML VIAL IM ONE (22:45)
--- NOTE | 2021-10-14 22:49 | OB Labor & Delivery Record ---
Vag Delivery Note Vag Delivery Note Date of Delivery: 10/14/21 Preoperative Diagnosis: Nanci Russell is a (30 /Para 2 / 1, Gestational Age (wks)37.3 wga with intrahepatic cholestasis of , admitted for induction of labor with AROM. Postoperative Diagnosis: Same Surgeon: ALEN FRANKLIN Anesthesia: Epidural Delivery Type: Findings: Viable male , apgars 8, weight 9, Weight of 6 lbs 7 oz Lacerations: Bilateral periurethral lacerations and 1st degree perineal lacera tion noted. Lacerations were repaired without incident using 3-0 Chromic suture on a SH needle. Intact placenta with 3 vessel cord. No nuchal cord, body cord or shoulder dystocia. Estimated Blood Loss: 150 ml Complications: None Condition: Stable Description of Procedure: The patient is a 30 year old female who presented to L&D with complaints of 2 days pruritus of her palms and soles. Her symptoms have been non- responsive to triamcinolone cream and oral benadryl. Due to concerns for intrahepatic cholestasis of at 37 wga, she was admitted for induction of labor with AROM. Informed consent was obtained. Her labor course was remarkable for quick labor as she delivered within 6 hours after AROM. She progressed to complete dilatation and began to push. She was then set up for delivery. The infant's head was delivered atraumatically in the LOT position. The shoulders and remainder of the 's body were then delivered without difficulty. Upon delivery, the head was held below the level of the perineum and the mouth and nares were bulb suctioned. The cord was doubly clamped and cut and the infant was handed off to the pediatric staff. An intact placenta with 3-vessel cord delivered via Jayme and there was found to be minimal bleeding. Vigorous fundal massage was performed and the fundus was found to be firm. IV oxytocin was given. Examination of the vagina and perineum revealed bilateral periurethral and 1st degree lacerations, which were repaired in the usual fashion with 3-0 Chromic suture. Following the repair, sponge, instrument and needle counts were correct. Mom and baby were both in stable condition in the labor suite. Vitals - Labs Vital Signs - I&O Vital Signs Date Time Temp Pulse Resp B/P (MAP) Pulse Ox O2 Delivery O2 Flow Rate FiO2 10/14/21 19:00 35.9 92 18 99 10/14/21 18:45 89 18 126/77 (93) 98 10/14/21 18:42 86 18 125/80 (95) 98 10/14/21 18:39 87 18 130/70 (90) 98 10/14/21 18:36 83 18 126/72 (90) 98 10/14/21 18:33 94 18 129/69 (89) 98 10/14/21 18:30 96 18 124/67 (86) 98 10/14/21 18:26 85 18 129/69 (89) 98 10/14/21 18:23 90 18 131/68 (89) 98 10/14/21 18:20 92 18 131/78 (95) 98 10/14/21 18:18 86 18 123/67 (85) 98 10/14/21 18:15 88 18 123/68 (86) 98 10/14/21 18:12 85 18 122/67 (85) 98 10/14/21 18:10 84 18 123/67 (85) 98 10/14/21 18:05 76 18 134/84 (101) 99 10/14/21 18:00 78 18 148/82 (104) 99 10/14/21 17:55 99 18 139/67 (91) 98 10/14/21 17:30 77 18 135/76 (95) 10/14/21 17:00 76 18 135/83 (100) 10/14/21 16:30 80 18 132/90 (104) 10/14/21 14:26 36.6 100 18 98 Room Air 10/14/21 14:26 36.6 100 18 98 Room Air Labs Laboratory Tests 10/14/21 13:55: Urine Color YELLOW, Urine Clarity CLEAR, Urine pH 6.0, Urine Specific [place] 1.015L, Urine Protein NEGATIVE, Urine Glucose (UA) NEGATIVE, Urine Ketones NEGATIVE, Urine Nitrite NEGATIVE, Urine Bilirubin NEGATIVE, Urine Urobilinogen 0.2, Urine Leukocyte Esterase NEGATIVE, Urine RBC (Auto) NEGATIVE, Urine RBC NONE, Urine WBC 0-2, Urine Squamous Epithelial Cells 0-2, Urine Crystals NONE, Urine Bacteria FEWH, Urine Casts NONE, Urine Mucus SMALLH, Urine Culture Indicated NO 10/14/21 16:00: White Blood Count 11.6H, Red Blood Count 4.04, Hemoglobin 12.0, Hematocrit 36, Mean Corpuscular Volume 88, Mean Corpuscular Hemoglobin 30, Mean Corpuscular Hemoglobin Concent 34, Red Cell Distribution Width 12.5, Platelet Count 267, Mean Platelet Volume 10.8, Immature Granulocyte % (Auto) 1, Neutrophils (%) (Auto) 72, Lymphocytes (%) (Auto) 17, Monocytes (%) (Auto) 11, Eosinophils (%) (Auto) 0, Basophils (%) (Auto) 0, Neutrophils # (Auto) 8.3H, Lymphocytes # (Auto) 1.9, Monocytes # (Auto) 1.2H, Eosinophils # (Auto) 0.0, Basophils # (Auto) 0.0, Immature Granulocyte # (Auto) 0.1, Sodium Level 137, Potassium Level 3.2L, Chloride Level 107, Carbon Dioxide Level 20L, Anion Gap 10, Blood Urea Nitrogen 7, Creatinine 0.59L, Estimat Glomerular Filtration Rate 126, BUN/Creatinine Ratio 12, Glucose Level 95, Calcium Level 8.7, Corrected Calcium 9.3, Total Bilirubin 0.3, Aspartate Amino Transf (AST/SGOT) 11, Alanine Aminotransferase (ALT/SGPT) 9, Alkaline Phosphatase 160H, Total Protein 6.4, Albumin 3.3 ALEN FRANKLIN MD Oct 14, 2021 22:49
[2021-10-15] VITALS (9 sets, daily range): BP systolic 91–130; BP diastolic 53–75
[2021-10-15] MEDS ORDERED: ACETAMINOPHEN 500 MG TAB (TYLENOL) ONE (01:12)
[2021-10-15] MEDS: IBUPROFEN 600 MG (MOTRIN) TAB PO SCH ×5 (01:14→23:57)
[2021-10-15] MEDS: WITCH HAZEL(TUCKS) 40 EA JAR TOP PRN (01:14)
[2021-10-15] MEDS: ACETAMINOPHEN 500 MG TAB (TYLENOL) PO SCH ×3 (01:14→17:50)
[2021-10-15] MEDS: BENZOCAINE/MENTHOL (DERMOPLAST) 56 ML CAN TP PRN (01:15)
[2021-10-15] MEDS ORDERED: CALCIUM CARBONATE 500 MG (TUMS) TAB.CHEW ONE (01:20)
[2021-10-15] MEDS ORDERED: CALCIUM CARBONATE 500 MG (TUMS) TAB.CHEW PO PRN (01:30)
[2021-10-15] MEDS ORDERED: CATHETER FLUSH 10 ML SYR IV SCH (06:00)
[2021-10-15 06:58] LABS: BASOPHILS % (AUTO) 0 % (0-10); EOSINOPHILS % (AUTO) 0 % (0-10); HEMATOCRIT 33 % (35-52); LYMPHOCYTES # (AUTO) 2.4 10^3/uL (1.0-4.0); LYMPHOCYTES % (AUTO) 18 % (12-44); MEAN CORPUSCULAR HEMOGLOBIN 30 pg (25-34); MEAN CORPUSCULAR HGB CONC 33 g/dL (32-36); MEAN CORPUSCULAR VOLUME 89 fL (80-99); MEAN PLATELET VOLUME 10.6 fL (9.0-12.2); MONOCYTES # (AUTO) 1.6 10^3/uL (0.0-1.0); MONOCYTES % (AUTO) 12 % (0-12); NEUTROPHILS # (AUTO) 8.9 10^3/uL (1.8-7.8); NEUTROPHILS % (AUTO) 68 % (42-75); PLATELET COUNT 208 10^3/uL (130-400); WHITE BLOOD COUNT 13.1 10^3/uL (4.3-11.0)
[2021-10-15] MEDS: FERROUS SULF 325 MG (IRON) TAB PO SCH (09:02)
[2021-10-15] MEDS: PRENATAL VITAMIN 1 EA TAB PO SCH (09:02)
[2021-10-15] MEDS: DOCUSATE SODIUM 100 MG (COLACE) CAP PO SCH ×2 (09:02→21:31)
--- NOTE | 2021-10-15 10:18 | Postpartum Progress Note ---
Note Note Day # 1 Subjective: Patient is without complaints. Ambulating, voiding. Tolerating a regular diet without nausea or vomiting. Normal lochia. Pain is well controlled with oral pain medications. . Objective: See below for vitals. Physical Exam: General - Alert and oriented, no apparent distress Abdomen - Soft, appropriately tender to palpation, non-distended, fundus firm at umbilicus Extremities - no edema, negative Alka's bilaterally Assessment: Post- day # 1, status post vaginal delivery. Recovering well, hemodynamically stable Plan: Routine care. Encourage breast feeding. DVT ppx: Encourage ambulation. SCDs in place when in bed. Acute blood loss anemia: Preop hgb 12.0 --> postop 11.0. Ferrous sulfate supplementation. Contraception: Plans for tubal ligation from outpatient standpoint. Declines bridge at this time and will practice abstinence. Plan for discharge on PPD#2. Vitals - Labs Vital Signs - I&O Vital Signs Date Time Temp Pulse Resp B/P (MAP) Pulse Ox O2 Delivery O2 Flow Rate FiO2 10/15/21 09:03 36.1 62 18 105/69 (81) 98 Room Air 10/15/21 05:00 36.5 72 18 91/53 (66) 98 Room Air 10/15/21 01:30 36.2 96 18 130/73 (92) Room Air 10/15/21 00:50 36.1 82 18 125/75 (92) Room Air 10/15/21 00:20 81 18 118/74 (89) Room Air 10/14/21 23:45 36.4 76 18 122/73 (89) Room Air 10/14/21 23:15 36.0 75 18 120/69 (86) Room Air 10/14/21 23:00 36.0 83 18 120/58 (78) Room Air 10/14/21 22:45 90 18 132/73 (92) Room Air 10/14/21 22:30 36.5 92 18 130/73 (92) Room Air 10/14/21 22:15 93 18 138/74 (95) Room Air 10/14/21 22:00 36.8 125 18 139/88 (105) 99 Room Air 10/14/21 21:45 97 18 132/82 (99) 98 Room Air 2/2/22 21:30 90 18 124/77 (93) 98 Room Air 10/14/21 21:15 91 18 130/76 (94) 99 Room Air 10/14/21 21:00 36.0 88 18 131/66 (87) 99 Room Air 10/14/21 20:45 96 18 133/99 (110) 100 Room Air 10/14/21 20:30 86 18 142/86 (104) 100 Room Air 10/14/21 20:15 71 18 139/75 (96) 99 Room Air 10/14/21 20:00 86 18 123/83 (96) 99 Room Air 10/14/21 19:45 72 18 119/80 (93) 100 Room Air 10/14/21 19:30 35.9 73 18 128/82 (97) 100 Room Air 10/14/21 19:15 71 18 121/79 (93) 98 Room Air 10/14/21 19:00 35.9 92 18 99 10/14/21 19:00 87 18 116/69 (85) 98 Room Air 10/14/21 18:45 89 18 126/77 (93) 98 10/14/21 18:42 86 18 125/80 (95) 98 10/14/21 18:39 87 18 130/70 (90) 98 10/14/21 18:36 83 18 126/72 (90) 98 10/14/21 18:33 94 18 129/69 (89) 98 10/14/21 18:30 96 18 124/67 (86) 98 10/14/21 18:26 85 18 129/69 (89) 98 10/14/21 18:23 90 18 131/68 (89) 98 10/14/21 18:20 92 18 131/78 (95) 98 10/14/21 18:18 86 18 123/67 (85) 98 10/14/21 18:15 88 18 123/68 (86) 98 10/14/21 18:12 85 18 122/67 (85) 98 10/14/21 18:10 84 18 123/67 (85) 98 10/14/21 18:05 76 18 134/84 (101) 99 10/14/21 18:00 78 18 148/82 (104) 99 10/14/21 17:55 99 18 139/67 (91) 98 10/14/21 17:30 77 18 135/76 (95) 10/14/21 17:00 76 18 135/83 (100) 10/14/21 16:30 80 18 132/90 (104) 10/14/21 14:26 36.6 100 18 98 Room Air 10/14/21 14:26 36.6 100 18 98 Room Air I & O 10/15/21 07:00 Intake Total 1575 ml Output Total 0 ml Balance 1575 ml Labs Laboratory Tests 10/14/21 13:55: Urine Color YELLOW, Urine Clarity CLEAR, Urine pH 6.0, Urine Specific [place] 1.015L, Urine Protein NEGATIVE, Urine Glucose (UA) NEGATIVE, Urine Ketones NEG ATIVE, Urine Nitrite NEGATIVE, Urine Bilirubin NEGATIVE, Urine Urobilinogen 0.2, Urine Leukocyte Esterase NEGATIVE, Urine RBC (Auto) NEGATIVE, Urine RBC NONE, Urine WBC 0-2, Urine Squamous Epithelial Cells 0-2, Urine Crystals NONE, Urine Bacteria FEWH, Urine Casts NONE, Urine Mucus SMALLH, Urine Culture Indicated NO 10/14/21 16:00: White Blood Count 11.6H, Red Blood Count 4.04, Hemoglobin 12.0, Hematocrit 36, Mean Corpuscular Volume 88, Mean Corpuscular Hemoglobin 30, Mean Corpuscular Hemoglobin Concent 34, Red Cell Distribution Width 12.5, Platelet Count 267, Mean Platelet Volume 10.8, Immature Granulocyte % (Auto) 1, Neutrophils (%) (Auto) 72, Lymphocytes (%) (Auto) 17, Monocytes (%) (Auto) 11, Eosinophils (%) (Auto) 0, Basophils (%) (Auto) 0, Neutrophils # (Auto) 8.3H, Lymphocytes # (Auto) 1.9, Monocytes # (Auto) 1.2H, Eosinophils # (Auto) 0.0, Basophils # (Auto) 0.0, Immature Granulocyte # (Auto) 0.1, Sodium Level 137, Potassium Level 3.2L, Chloride Level 107, Carbon Dioxide Level 20L, Anion Gap 10, Blood Urea Nitrogen 7, Creatinine 0.59L, Estimat Glomerular Filtration Rate 126, BUN/Creatinine Ratio 12, Glucose Level 95, Calcium Level 8.7, Corrected Calcium 9.3, Total Bilirubin 0.3, Aspartate Amino Transf (AST/SGOT) 11, Alanine Aminotransferase (ALT/SGPT) 9, Alkaline Phosphatase 160H, Total Protein 6.4, Albumin 3.3 10/15/21 06:49: White Blood Count 13.1H, Red Blood Count 3.72L, Hemoglobin 11.0L, Hematocrit 33L , Mean Corpuscular Volume 89, Mean Corpuscular Hemoglobin 30, Mean Corpuscular Hemoglobin Concent 33, Red Cell Distribution Width 12.5, Platelet Count 208, Mean Platelet Volume 10.6, Immature Granulocyte % (Auto) 1, Neutrophils (%) (Auto) 68, Lymphocytes (%) (Auto) 18, Monocytes (%) (Auto) 12, Eosinophils (%) (Auto) 0, Basophils (%) (Auto) 0, Neutrophils # (Auto) 8.9H, Lymphocytes # (Auto) 2.4, Monocytes # (Auto) 1.6H, Eosinophils # (Auto) 0.0, Basophils # (Auto) 0.0, Immature Granulocyte # (Auto) 0.1 ALEN FRANKLIN MD Oct 15, 2021 10:18
[2021-10-15] MEDS ORDERED: TETANUS,DIPTH,PERTUSS P/F (BOOSTRIX) 0.5 ML VIAL IM ONE (12:38)
[2021-10-15] MEDS ORDERED: hydrOXYzine (VISTARIL/ATARAX) 25 MG capsule/tablet PO PRN (23:00)
[2021-10-16] MEDS: ACETAMINOPHEN 500 MG TAB (TYLENOL) PO SCH ×2 (02:07→12:15)
[2021-10-16 05:12] VITALS: BP 136/80
[2021-10-16] MEDS: IBUPROFEN 600 MG (MOTRIN) TAB PO SCH ×2 (05:12→12:15)
[2021-10-16 08:38] VITALS: BP 109/70
[2021-10-16] MEDS: FERROUS SULF 325 MG (IRON) TAB PO SCH (08:38)
[2021-10-16] MEDS: PRENATAL VITAMIN 1 EA TAB PO SCH (08:38)
[2021-10-16] MEDS: DOCUSATE SODIUM 100 MG (COLACE) CAP PO SCH (08:38)
--- NOTE | 2021-10-16 10:19 | Postpartum Progress Note ---
Note Note Day #2 Subjective: Patient is without complaints. Ambulating, voiding. Tolerating a regular diet without nausea or vomiting. Normal lochia. Pain is well controlled with oral pain medications. . Objective: See below for vitals. Physical Exam: General - Alert and oriented, no apparent distress Abdomen - Soft, appropriately tender to palpation, non-distended, fundus firm at umbilicus Extremities - no edema, negative Alka's bilaterally Assessment: Post- day # 2, status post vaginal delivery. Recovering well, hemodynamically stable Plan: Routine care. Pruritus: Back Pain: Will discharge home with flexeril to aid with back pain. Lidocaine patches are clear for usage as well. Viable male infant. Circ completed. Encourage breast feeding. DVT ppx: Encourage ambulation. SCDs in place when in bed. Acute blood loss anemia: Preop hgb 12.0 --> postop 11.0. Ferrous sulfate supplementation. Contraception: Plans for tubal ligation from outpatient standpoint. Declines bridge at this time and will practice abstinence. Plan for discharge today. Vitals - Labs Vital Signs - I&O Vital Signs Date Time Temp Pulse Resp B/P (MAP) Pulse Ox O2 Delivery O2 Flow Rate FiO2 10/16/21 08:38 36.3 68 18 109/70 (83) 98 Room Air 10/16/21 05:12 36.1 60 18 136/80 (98) 97 Room Air 10/15/21 23:57 36.0 69 18 118/67 (84) 97 Room Air 10/15/21 17:45 36.1 82 18 128/74 (92) 97 Room Air 10/15/21 11:50 36.8 75 18 112/66 (81) 97 Room Air ALEN FRANKLIN MD Oct 16, 2021 10:19
[2021-10-16] MEDS ORDERED: CYCLOBENZAPRINE 10 MG (FLEXERIL) TAB PO PRN ×2 (10:30→11:30)
[2021-10-16] MEDS ORDERED: IBUP-1773 PO (11:28)
[2021-10-16] MEDS ORDERED: DOCU-143 PO (11:28)
[2021-10-16] MEDS ORDERED: CYCL10TA25 PO (11:28)
--- NOTE | 2021-10-16 11:30 | Discharge Inst-Simple/Standard ---
Discharge Inst-Standard Reconcile Patient Problems Problems Reviewed?: Yes Discharge Medications New, Converted or Re-Newed RX: Transmitted to Pharmacy Patient Instructions/Follow Up Plan of Care/Instructions/FU: Patient to follow-up in 6 weeks for her visit. Activity as Tolerated: Yes Discharge Diet: No Restrictions Health Concerns: None Planned Outpatient Orders/Ref. Plan for 6 week visit. ALEN FRANKLIN MD Oct 16, 2021 11:30
--- NOTE | 2021-10-16 11:35 | Short Stay Summary ---
Discharge Summary Hospital Course Was the Problem List Reviewed?: Yes Problems/Dx: (1) Cholestasis during Status: Resolved Qualifiers: Qualified Codes: O26.613 - Liver and biliary tract disorders in , third trimester; K83.1 - Obstruction of bile duct (2) 37 weeks gestation of Status: Resolved Final Diagnosis: care following vaginal delivery Hospital Course Date of Admission: Oct 14, 2021 at 15:24 Admission Diagnosis : Family Physician/Provider: Magdi Barragan MD Date of Discharge: 10/16/21 Discharge Diagnosis: [ ] Hospital Course: [ ] Labs and Pending Lab Test: Home Meds Active Ibuprofen 600 Mg Tablet 600 Mg PO Q6H Colace (Docusate Sodium) 100 Mg Capsule 100 Mg PO BID Cyclobenzaprine HCl 10 Mg Tablet 5 Mg PO TID PRN 7 Days Reported Triamcinolone Acetonide 0.025% (Triamcinolone Acet) 15 Gm Cr 15 Gm TP NEEDED Benadryl (Diphenhydramine HCl) 25 Mg Capsule 25 Mg PO Q6H PRN Vitamin Tablet ( Vit No.124/Iron/FA) 1 Each Tablet 1 Each PO DAILY Proair Hfa (Albuterol Sulfate) 1 Puff Puff 2 Puff IH Q4H PRN 1 PUFF = 90 MCG Assessment/Pt Instructions Follow-up in 6 weeks for visit. Discharge Instructions Discharge Diet: No Restrictions Activity as Tolerated: Yes Discharge Physical Examination Allergies: Coded Allergies: latex (Verified Allergy, Mild, RASH, 09/03/19) Discharge Summary Date of Admission Oct 14, 2021 at 15:24 Date of Discharge Discharge Date: Oct 16, 2021 Discharge Time: 11:34 Discharge Diagnosis care following vaginal delivery (1) Cholestasis during Status: Resolved Assessment & Plan: Given patient's persistent symptoms to pruritus of palms and soles for 2 days, will proceed forward with induction of labor due to concerns for intrahepatic cholestasis of . # Will admit to L&D. # Labs: Routine admission labs. CMP and Bile acids ordered. # Will plan for induction with AROM. # Cat I tracing. # GBS negative. Antibiotics are not necessary. # The details of the procedure were reviewed with the patient along with the possibility of in the event of an emergency involving the mother or her fetus. All questions were answered and consents signed. # Anticipate vaginal delivery. Qualifiers: Qualified Codes: O26.613 - Liver and biliary tract disorders in , third trimester; K83.1 - Obstruction of bile duct (2) 37 weeks gestation of Status: Resolved (3) care following vaginal delivery ALEN FRANKLIN MD Oct 16, 2021 11:35
[2021-10-16] MEDS: WITCH HAZEL(TUCKS) 40 EA JAR TOP PRN (12:14)
[2021-10-16] MEDS: BENZOCAINE/MENTHOL (DERMOPLAST) 56 ML CAN TP PRN (12:14)
== END 2021-10-16 14:35 | disposition home or self-care (01) | DRG 805 ==
LOC: WSo 13:42 → LDRP 13:44 → WSo 15:23 → LDRP 15:24
PROVIDERS: ADMIT Obstetrics & Gynecology; ATTEND Obstetrics & Gynecology
PROC: 10E0XZZ Delivery of Products of Conception, External Approach (ICD-10-PCS; principal; 2021-10-14)
PROC: 10907ZC Drainage of Amniotic Fluid, Therapeutic from Products of Conception, Via Natural or Artificial Opening (ICD-10-PCS; 2021-10-14)
PROC: 0HQ9XZZ Repair Perineum Skin, External Approach (ICD-10-PCS; 2021-10-14)
DX: O26.62 Liver and biliary tract disorders in childbirth (principal); K83.1 Obstruction of bile duct; Z37.0 Single live birth; Z3A.37 37 weeks gestation of pregnancy; O70.0 First degree perineal laceration during delivery; O71.82 Other specified trauma to perineum and vulva
CPT/HCPCS: 36415; 80053; 81000; 83033; 83789; 85025; 86850; 86900; 86901; 90715